=== PATIENT | female | born 1940 | race Caucasian/White ===

== ENCOUNTER 2016-09-12 20:45 | Emergency (ER) | payer MEDICARE, BC ==
[~2016-09-12] VITALS: Ht 157.5 cm; Wt 113.4 kg
[~2016-09-12 20:45] MED LIST: CITRACAL + BON1 EACH PO; CITRACAL + D E1 EACH PO; CYMBALTA30 MG PO; CYMBALTA60 M1 PO; DITROPAN XL10 M1 PO; GABAPENTIN600 MG PO; GOLYTELY4000 ML PO; MAGNESIUM OXID400 MG PO; MAXZIDE 37.5 M1 EACH PO; NORCO 325-10 MG1 TAB PO; PARAFON FORTE500 MG PO; PRENATAL PLUS I1 TAB PO; PROMETH-CODEIN 65 ML PO; REQUIP0.25 MG PO; REQUIP1 M1 PO; REQUIP1 MG PO; TRAMADOL HCL50 MG PO; VALTREX500 MG PO; VITAMIN B-121000 MCG PO
[2016-09-12] MEDS ORDERED: REQUIP1 MG PO (21:52)
[2016-09-12] MEDS ORDERED: DETROL LA4 MG PO (21:57)
[2016-09-12] MEDS ORDERED: KLOR-CON M1010 MEQ PO (21:57)
== END 2016-09-12 22:25 | disposition short-term general hospital (02) ==
LOC: ER 20:45
DX: J06.9 Acute upper respiratory infection, unspecified (principal); Z88.8 Allergy status to other drugs, medicaments and biological substances

== ENCOUNTER → 2016-09-20 | Outpatient (CLI) | payer MEDICARE, BC ==
[~2016-09-20] MED LIST changes: +DETROL LA4 MG PO; +KLOR-CON M1010 MEQ PO
== END | disposition short-term general hospital (02) ==
LOC: CLNEUR 07:01
DX: R42 Dizziness and giddiness (principal); R53.83 Other fatigue; E11.42 Type 2 diabetes mellitus with diabetic polyneuropathy; M54.9 Dorsalgia, unspecified